=== PATIENT | female | born 1975 | race Caucasian/White ===

== ENCOUNTER → 2021-12-23 11:30 | Outpatient (CLI) | payer BC, SELFPAY ==
[2021-12-23 20:05] LABS: Vitamin D 25 Hydroxy (D3) 43.4 ng/mL (30.0-100.0)
[2021-12-23 20:32] LABS: Vitamin B12 905 pg/mL (239-931)
== END ==
PROVIDERS: PCP Physician Assistant; Visit Provider Physician Assistant
DX: E55.9 Vitamin D deficiency, unspecified (principal); R53.82 Chronic fatigue, unspecified
CPT/HCPCS: 82306; 82607

== ENCOUNTER → 2025-07-10 13:27 | Outpatient (CLI) | payer BC, SELFPAY ==
--- NOTE | 2025-07-10 13:31 | DI.RAD.S_ITS ---
PROCEDURE: XR DEXA AXIAL SKELETON INDICATIONS: Screening COMPARISON: None. FINDINGS: Lumbar Spine: Bone mineral density 0.965 g/cm2, Z score 0.0. Left Femoral Neck: Bone mineral density 0.770 g/cm2, Z score 0.0. Left Hip: Bone mineral density 0.910 g/cm2, Z score 0.2. Fracture Risk Calculation (when applicable): 10-year fracture risk of a major osteoporotic fracture 5.4 percent and of a hip fracture 0.2 percent. (T score greater or equal to -1.0 to: NORMAL) (T score from -1.1 to -2.4: OSTEOPENIA) (T score less than or equal to -2.5: OSTEOPOROSIS) IMPRESSION: Normal--- recommend repeat DEXA as clinically indicated. Follow-up guidelines as follows: Osteoporosis: Consider a repeat DEXA and Vertebral Fracture Assessment (VFA) exam in 2 years or sooner if medically necessary, to reassess this patient's status. Osteopenia: Consider a repeat DEXA in 2-3 years to reassess this patient's status, or if there is a new clinical indication. Normal: Consider a repeat DEXA in 5 years or sooner, or if there is a new clinical indication. All treatment decisions require clinical judgment and consideration of individual patient factors, including patient preferences, comorbidities, previous drug use, risk factors not captured in the FRAX model (e.g., frailty, falls, vitamin D deficiency, increased bone turnover, interval significant decline in bone density ) and possible under- or over-estimation of fracture risk by FRAX. In addition, the [employer] Guide recommends that FDA-approved medical therapies be considered in postmenopausal women and men age >= 50 years with a: * Hip or vertebral (clinical or morphometric) fracture * T-score of <=-2.5 at the spine or hip * Ten-year fracture probability by FRAX of >= 3% for hip fracture or >=20% for major osteoporotic fracture. Dictated by: Cristobal Portillo M.D. on 07/10/2025 at 20:01 Approved by: Cristobal Portillo M.D. on 07/10/2025 at 20:03
== END ==
LOC: RAD 13:29
PROVIDERS: PCP Naturopath; Referring Provider Naturopath; Visit Provider Naturopath
DX: E06.3 Autoimmune thyroiditis (principal); N95.1 Menopausal and female climacteric states; Z92.241 Personal history of systemic steroid therapy; Z79.890 Hormone replacement therapy
CPT/HCPCS: 77080